=== PATIENT | female | born 1950 | race Caucasian/White ===

== ENCOUNTER 2018-01-26 21:15 | Emergency (ER) | payer MEDICARE, OTHER ==
[~2018-01-26] VITALS: Ht 152.4 cm; Wt 38.5 kg
[2018-01-26 21:32] VITALS: BP 134/71
[2018-01-26] MEDS ORDERED: LEVO750T21 PO (22:31)
== END 2018-01-26 23:39 | disposition home or self-care (01) ==
LOC: ER 21:16
DX: J18.9 Pneumonia, unspecified organism (principal); F17.200 Nicotine dependence, unspecified, uncomplicated; Z79.899 Other long term (current) drug therapy
CPT/HCPCS: 71045; 87502; 87503; 99284

== ENCOUNTER 2018-01-29 14:43 | Emergency (ER) | payer MEDICARE, OTHER ==
[~2018-01-29] VITALS: Ht 152.4 cm; Wt 38.0 kg
[~2018-01-29 14:43] MED LIST: LEVO750T21 PO
[2018-01-29 14:47] VITALS: BP 128/73
== END 2018-01-29 15:38 | disposition home or self-care (01) ==
LOC: ER 14:43
DX: J18.9 Pneumonia, unspecified organism (principal); Z79.2 Long term (current) use of antibiotics
CPT/HCPCS: 99281

== ENCOUNTER 2018-05-23 18:55 | Inpatient (IN) | payer MEDICARE, OTHER ==
[~2018-05-23] VITALS: Ht 149.9 cm; Wt 37.7 kg
[2018-05-23] MEDS ORDERED: ibuprofen 200mg tablet PO ONE (19:15)
[2018-05-23 19:43] LABS: BASOPHILS % (AUTO) 0.2 % (0-1); EOSINOPHILS % (AUTO) 0 % (0-6); HEMATOCRIT 35.1 % (35.0-45.0); HEMOGLOBIN 11.6 g/dl (12.0-16.0); LYMPHOCYTES # (AUTO) 0.5 X10'3 (1.1-4.8); LYMPHOCYTES % (AUTO) 3.7 % (21-51); MEAN CORPUSCULAR HEMOGLOBIN 27.2 PG (27.0-31.0); MEAN CORPUSCULAR VOLUME 82.6 FL (78-98); MONOCYTES # (AUTO) 0.8 X10'3 (0-0.9); MONOCYTES % (AUTO) 5.6 % (2-12); NEUTROPHILS # (AUTO) 12.6 X10'3 (1.8-7.7); NEUTROPHILS % (AUTO) 90.5 % (42-75); PLATELET COUNT 375 X10'3 (140-440); RED BLOOD COUNT 4.25 X10'6 (4.20-5.60); RED CELL DISTRIBUTION WIDTH 15.3 % (11.5-14.5); WHITE BLOOD COUNT 13.9 X10'3 (4.5-11.0)
[2018-05-23 19:55] LABS: ALANINE AMINOTRANSFERASE 13 U/L (12-78); ALBUMIN 2.3 G/DL (3.4-5.0); ALBUMIN/GLOBULIN RATIO 0.5 (1.1-1.5); ALKALINE PHOSPHATASE 141 IU/L (46-116); ANION GAP 11 (8-16); ASPARTATE AMINO TRANSFERASE 13 U/L (10-37); BILIRUBIN,TOTAL 0.9 MG/DL (0.1-1.0); BLOOD UREA NITROGEN 12 MG/DL (7-18); BUN/CREATININE RATIO 13.5 (6.6-38.0); CALCIUM 8.7 MG/DL (8.5-10.1); CHLORIDE 96 MMOL/L (99-107); CREATININE 0.89 MG/DL (0.40-0.90); GLUCOSE 101 MG/DL (70-104); SODIUM 131 MMOL/L (135-145); TOTAL CARBON DIOXIDE 23.8 MMOL/L (24-32); TOTAL PROTEIN 7.3 G/DL (6.4-8.2); eGFR 63 ML/MIN
[2018-05-23 20:01] LABS: PARTIAL THROMBOPLASTIN TIME 33 SECONDS (22-32)
[2018-05-23] MEDS ORDERED: normal saline 1000ML IV soln IV ONE (21:35)
[2018-05-23] MEDS ORDERED: azithromycin 250mg tablet PO ONE (21:35)
[2018-05-23] MEDS ORDERED: CefTRIAXone 2gm/D5W 50ml 50 ML IV ONE (21:35)
[2018-05-23] MEDS ORDERED: normal saline 1000ml 1,000 ML IV SCH (21:59)
[2018-05-23] MEDS ORDERED: ipratropium/albuterol 3ml nebule NEB PRN (22:00)
[2018-05-23] MEDS ORDERED: magnesium hydroxide 30ml (MOM) UD suspension PO PRN (22:00)
[2018-05-23] MEDS ORDERED: magnesium Cl slow-release 64mg tablet PO PRN (22:00)
[2018-05-23] MEDS ORDERED: potassium Cl 20 mEq SR tablet PO PRN ×2 (22:00)
[2018-05-23] MEDS ORDERED: magnesium 4gm in 100ml NS 100 ML IV PRN (22:00)
[2018-05-23] MEDS ORDERED: magnesium 2GM in 50ml NS 50 ML IV PRN (22:00)
[2018-05-23] MEDS ORDERED: potassium Cl 40MEQ/NS 500ml 500 ML IV PRN ×2 (22:00)
[2018-05-23] MEDS ORDERED: acetaminophen 325mg tablet PO PRN ×2 (22:00)
[2018-05-23] MEDS ORDERED: mag hydrox/Alum hydrox/simeth 30ml oral suspension PO PRN (22:00)
[2018-05-23] MEDS ORDERED: nicotine 14mg patch - 24hr TD ONE (22:00)
[2018-05-23] MEDS ORDERED: ondansetron/PF 4mg/2ml inj IV PRN (22:00)
[2018-05-23] MEDS ORDERED: HYDROcodone/acetaminophen 5mg/325mg tablet PO PRN (22:00)
[2018-05-23] MEDS ORDERED: dexamethasone sod phosphate 10mg/ml inj IV STA (22:03)
[2018-05-23] MEDS ORDERED: ipratropium/albuterol 3ml nebule NEB ONE (22:05)
[2018-05-23] MEDS: ipratropium/albuterol 3ml nebule NEB SCH (22:34)
[2018-05-23 23:58] LABS: CLARITY,URINE CLEAR (Clear); COLOR,URINE YELLOW (Yellow); GLUCOSE, URINE NEGATIVE (Neg); KETONES,URINE TRACE mg/dl (Neg); LEUKOCYTE ESTERASE ,URINE NEGATIVE (Neg); NITRITES, URINE NEGATIVE (Neg); OCCULT BLOOD,URINE TRACE-INTACT (Neg); PH,URINE 5.5 (4.8-8.0); PROTEIN,URINE TRACE mg/dl (Neg)
[2018-05-24 00:07] LABS: UA COLLECTION TYPE CLN CATCH MIDSTREAM
[2018-05-24 00:11] LABS: MUCUS STRANDS MANY /LPF (Neg); RBC,URINE 0-2 /HPF (0-2); SQUAMOUS EPITHELIAL CELL,UR MODERATE /LPF (FEW); WBC,URINE 0-4 /HPF (0-4)
[2018-05-24 00:12] LABS: BACTERIA,URINE FEW /HPF (Neg)
[2018-05-24] MEDS ORDERED: methylPREDNISolone sod succ 125mg/2ml vial IV SCH (02:00)
--- NOTE | 2018-05-24 02:29 | NUR ---
REPORTED BP 83/[address] SANCHEZ. NEW ORDER: NS AT 70CC/HR
[2018-05-24] MEDS: normal saline 1000ml 1,000 ML IV SCH ×3 (02:39→15:49)
--- NOTE | 2018-05-24 05:01 | NUR ---
Increased rate of IVF to 1000ml/hr for now as pts bp is low. Her skin is a little clammy. She is afebrile. No pain. She said her normal bp is in the 90s systolic.
--- NOTE | 2018-05-24 05:07 | NUR ---
SBAR to DR SANCHEZ who called me back, instructed to adm. 1 LNS bolus then resume 70 ml/hr.
[2018-05-24] MEDS ORDERED: normal saline 1000ml 1,000 ML IVB ONE (05:10)
--- NOTE | 2018-05-24 05:12 | NUR ---
IV leaking. It was retaped and fresh tagaderm. Seems fine now. IV NS bolusing on pressure bag.
[2018-05-24] MEDS ORDERED: LEVE250T4 PO (06:04)
--- NOTE | 2018-05-24 06:05 | NUR ---
SHE STATES SHE HAS NOT HAD A SZ FOR OVER 10 YEARS.
[2018-05-24] MEDS ORDERED: normal saline 250ml IV soln 250 ML IV ONE (07:35)
[2018-05-24] MEDS: ipratropium/albuterol 3ml nebule NEB SCH ×5 (07:59→23:23)
[2018-05-24] MEDS: nicotine 14mg patch - 24hr TD SCH (08:00)
[2018-05-24] MEDS ORDERED: levetiracetam 250mg tablet PO SCH (08:00)
[2018-05-24] MEDS: K and/or MAG REPLACEMENT MC SCH (08:00)
[2018-05-24] MEDS: CefTRIAXone/D5W-Rocephin 1gm 50 ML IV SCH (09:14)
[2018-05-24] MEDS: enoxaparin 40mg/0.4ml syringe SQ SCH (09:14)
[2018-05-24] MEDS: pantoprazole 40mg Tablet.DR PO SCH (09:14)
[2018-05-24] MEDS: azithromycin/NS 500mg/250ml 250 ML IV SCH (10:52)
[2018-05-24 11:32] LABS: BASOPHILS % (AUTO) 0.3 % (0-1); EOSINOPHILS % (AUTO) 0 % (0-6); HEMATOCRIT 29.9 % (35.0-45.0); HEMOGLOBIN 9.9 g/dl (12.0-16.0); LYMPHOCYTES # (AUTO) 0.3 X10'3 (1.1-4.8); LYMPHOCYTES % (AUTO) 3.3 % (21-51); MEAN CORPUSCULAR HEMOGLOBIN 27.3 PG (27.0-31.0); MEAN CORPUSCULAR HGB CONC 33.1 g/dL (33.0-36.5); MEAN CORPUSCULAR VOLUME 82.5 FL (78-98); MEAN PLATELET VOLUME 7.2 FL (7.4-10.4); MONOCYTES # (AUTO) 0.3 X10'3 (0-0.9); MONOCYTES % (AUTO) 3.2 % (2-12); NEUTROPHILS # (AUTO) 7.7 X10'3 (1.8-7.7); NEUTROPHILS % (AUTO) 93.2 % (42-75); PLATELET COUNT 322 X10'3 (140-440); RED BLOOD COUNT 3.63 X10'6 (4.20-5.60); RED CELL DISTRIBUTION WIDTH 15.2 % (11.5-14.5); WHITE BLOOD COUNT 8.3 X10'3 (4.5-11.0)
[2018-05-24 11:45] LABS: ALBUMIN 1.7 G/DL (3.4-5.0); ANION GAP 9 (8-16); BLOOD UREA NITROGEN 12 MG/DL (7-18); BUN/CREATININE RATIO 16.4 (6.6-38.0); CALCIUM 8.1 MG/DL (8.5-10.1); CHLORIDE 106 MMOL/L (99-107); CREATININE 0.73 MG/DL (0.40-0.90); GLUCOSE 221 MG/DL (70-104); MAGNESIUM 1.8 MG/DL (1.5-2.4); PHOSPHORUS 2.7 MG/DL (2.3-4.5); POTASSIUM 3.4 MMOL/L (3.5-5.1); SODIUM 139 MMOL/L (135-145); TOTAL CARBON DIOXIDE 24.3 MMOL/L (24-32); eGFR 79 ML/MIN
--- NOTE | 2018-05-24 15:19 | NUR ---
Patient in room . I have received report from Starr TIPTON in ER and had the opportunity to ask questions will assume patient care when patient comes to the floor.
[2018-05-24] MEDS: methylPREDNISolone sod succ 125mg/2ml vial IV SCH ×2 (15:57→23:55)
[2018-05-24 16:00] VITALS: BP_SYST 85; BP_SYST 91; BP_DIAS 45; BP_DIAS 46
[2018-05-24 16:03] VITALS: BP 85/45
[2018-05-24 16:05] VITALS: BP 91/46
--- NOTE | 2018-05-24 18:19 | NUR ---
Problems reprioritized. Patient report given, questions answered & plan of care reviewed with Pat RN.
[2018-05-24 19:30] VITALS: BP 95/57
[2018-05-24] MEDS: potassium Cl 20mEq in NS 1,000 ML IV SCH (23:54)
[2018-05-24] MEDS: lactobacillus rhamnosus 10,000 MMU CELLS/CAPSULE PO SCH (23:56)
[2018-05-25] VITALS: BP 94/51
[2018-05-25 05:49] LABS: BASOPHILS % (AUTO) 0.1 % (0-1); EOSINOPHILS % (AUTO) 0 % (0-6); HEMOGLOBIN 8.6 g/dl (12.0-16.0); LYMPHOCYTES # (AUTO) 0.4 X10'3 (1.1-4.8); LYMPHOCYTES % (AUTO) 4.9 % (21-51); MEAN CORPUSCULAR HEMOGLOBIN 27.5 PG (27.0-31.0); MEAN CORPUSCULAR HGB CONC 33.2 g/dL (33.0-36.5); MEAN PLATELET VOLUME 7.2 FL (7.4-10.4); MONOCYTES # (AUTO) 0.3 X10'3 (0-0.9); MONOCYTES % (AUTO) 3.4 % (2-12); NEUTROPHILS # (AUTO) 7.6 X10'3 (1.8-7.7); NEUTROPHILS % (AUTO) 91.6 % (42-75); PLATELET COUNT 303 X10'3 (140-440); RED BLOOD COUNT 3.13 X10'6 (4.20-5.60); RED CELL DISTRIBUTION WIDTH 15.3 % (11.5-14.5); WHITE BLOOD COUNT 8.3 X10'3 (4.5-11.0)
[2018-05-25 06:12] LABS: ALBUMIN 1.6 G/DL (3.4-5.0); ANION GAP 9 (8-16); BLOOD UREA NITROGEN 10 MG/DL (7-18); BUN/CREATININE RATIO 15.4 (6.6-38.0); CALCIUM 8.3 MG/DL (8.5-10.1); CHLORIDE 110 MMOL/L (99-107); CREATININE 0.65 MG/DL (0.40-0.90); GLUCOSE 155 MG/DL (70-104); MAGNESIUM 1.8 MG/DL (1.5-2.4); POTASSIUM 3.9 MMOL/L (3.5-5.1); SODIUM 142 MMOL/L (135-145); TOTAL CARBON DIOXIDE 22.7 MMOL/L (24-32); eGFR > 90 ML/MIN
[2018-05-25 07:12] VITALS: BP 115/76
[2018-05-25] MEDS: K and/or MAG REPLACEMENT MC SCH (08:00)
[2018-05-25] MEDS: methylPREDNISolone sod succ 125mg/2ml vial IV SCH ×2 (08:30→20:33)
[2018-05-25] MEDS: enoxaparin 40mg/0.4ml syringe SQ SCH (08:31)
[2018-05-25] MEDS: lactobacillus rhamnosus 10,000 MMU CELLS/CAPSULE PO SCH ×2 (08:31→20:31)
[2018-05-25] MEDS: pantoprazole 40mg Tablet.DR PO SCH (08:32)
[2018-05-25] MEDS: CefTRIAXone/D5W-Rocephin 1gm 50 ML IV SCH (08:33)
[2018-05-25] MEDS: ipratropium/albuterol 3ml nebule NEB SCH ×5 (08:41→23:00)
[2018-05-25] MEDS: nicotine 14mg patch - 24hr TD SCH (08:41)
[2018-05-25] MEDS: potassium Cl 20mEq in NS 1,000 ML IV SCH ×2 (09:29→15:30)
[2018-05-25] MEDS: azithromycin/NS 500mg/250ml 250 ML IV SCH (09:30)
[2018-05-25 11:00] VITALS: BP 111/69
--- NOTE | 2018-05-25 11:51 | NUR ---
Noted that pt with low BMI of 16.8 however current documented wt is patient stated. Per documented weights from previous visits pt with chronically low wt. Per H&P pt appears well nourished and well developed. Pt with no documented edema or decrease in muscle strength. Pt on a regular diet with documented PO intake 100% protein and 25% of starch/soup first meal. Pt currently does not meet criteria for malnutrition. Will continue to follow. Addendum: 05/25/18 at [address] Amended: Links added.
[2018-05-25] MEDS: levoFLOXACIN-Levaquin 750MG/D5 150 ML IV SCH (15:07)
[2018-05-25] MEDS: benzonatate 100mg capsule PO SCH ×2 (16:09→23:58)
--- NOTE | 2018-05-25 18:00 | NUR ---
Problems reprioritized. Patient report given, questions answered & plan of care reviewed with Jennifer TIPTON .
--- NOTE | 2018-05-25 18:25 | NUR ---
Received report from Maryanne TIPTON with Prudence RN ptis awake and alert on3L of O2 via NC in no apparent distress, dinner at bedside, call light and items of freq use within reach.
--- NOTE | 2018-05-25 18:30 | NUR ---
Patient in room [facility]. I have received report from Darshana TIPTON and had the opportunity to ask questions and assume patient care.
--- NOTE | 2018-05-25 18:46 | NUR ---
1500 SVN treatment triaged
[2018-05-25 19:00] VITALS: BP 122/71
[2018-05-25] MEDS ORDERED: levetiracetam 250mg tablet PO SCH (21:00)
--- NOTE | 2018-05-25 23:57 | NUR ---
Received report from Josie TIPTON in ER pt ambulated a small distance to bed, daughters at bedside, pt on RA, A@Ox4, will orient pt to room and assess. pt states that she took her hearing aides out and is ready to go to sleep, i told we would have to DART and ask questions in the morning when she put her hearing aides in. pt stated this ok. Addendum: 05/25/18 at 0467 by May Abebe RN wrong pt
[2018-05-26 00:23] VITALS: BP 103/62
[2018-05-26 05:57] LABS: BASOPHILS % (AUTO) 0 % (0-1); EOSINOPHILS % (AUTO) 0 % (0-6); HEMATOCRIT 30.2 % (35.0-45.0); LYMPHOCYTES # (AUTO) 0.4 X10'3 (1.1-4.8); LYMPHOCYTES % (AUTO) 4.5 % (21-51); MEAN CORPUSCULAR HEMOGLOBIN 27.5 PG (27.0-31.0); MEAN CORPUSCULAR HGB CONC 33.2 g/dL (33.0-36.5); MEAN CORPUSCULAR VOLUME 82.8 FL (78-98); MEAN PLATELET VOLUME 6.9 FL (7.4-10.4); MONOCYTES # (AUTO) 0.4 X10'3 (0-0.9); NEUTROPHILS # (AUTO) 8.2 X10'3 (1.8-7.7); NEUTROPHILS % (AUTO) 90.5 % (42-75); PLATELET COUNT 382 X10'3 (140-440); RED BLOOD COUNT 3.65 X10'6 (4.20-5.60); RED CELL DISTRIBUTION WIDTH 15.4 % (11.5-14.5); WHITE BLOOD COUNT 9.1 X10'3 (4.5-11.0)
--- NOTE | 2018-05-26 06:18 | NUR ---
Gave report to Maryanne TIPTON with Prudence RN, pt is semi awake on 2L of O2 via NC in no apparent distress, call light and items of freq use within reach.
--- NOTE | 2018-05-26 06:18 | NUR ---
Problems reprioritized. Patient report given to DANUTA Madden, questions answered & plan of care reviewed with DANUTA Olvera .
[2018-05-26 07:00] VITALS: BP 119/68
[2018-05-26] MEDS: ipratropium/albuterol 3ml nebule NEB SCH ×3 (07:18→15:09)
[2018-05-26] MEDS: K and/or MAG REPLACEMENT MC SCH (08:00)
[2018-05-26] MEDS: levoFLOXACIN-Levaquin 750MG/D5 150 ML IV SCH (08:09)
[2018-05-26] MEDS: benzonatate 100mg capsule PO SCH ×2 (08:09→16:24)
[2018-05-26] MEDS: pantoprazole 40mg Tablet.DR PO SCH (08:09)
[2018-05-26] MEDS: lactobacillus rhamnosus 10,000 MMU CELLS/CAPSULE PO SCH (08:09)
[2018-05-26] MEDS: methylPREDNISolone sod succ 125mg/2ml vial IV SCH (08:10)
[2018-05-26] MEDS: nicotine 14mg patch - 24hr TD SCH (08:11)
[2018-05-26] MEDS: enoxaparin 40mg/0.4ml syringe SQ SCH (08:13)
[2018-05-26] MEDS: potassium Cl 20mEq in NS 1,000 ML IV SCH ×2 (08:20)
[2018-05-26 12:16] VITALS: BP 116/67
--- NOTE | 2018-05-26 12:32 | NUR ---
O2 Sat at rest on room air:87% If below 89%: Recovery O2 Sat at rest on 2 LPM: 93%: via nasal cannula (mask/nasal cannula, etc..) No further documentation is necessary. If O2 Sat did not drop below 89% on room air,ambulate patient on room air. O2 Sat while ambulating on room air:___% Recovery O2 Sat while ambulating on ___LPM:___% No further documentation is necessary. If patient does not drop below 89% while ambulating, he/she does not qualify for home O2.
--- NOTE | 2018-05-26 15:22 | NUR ---
FOUND PATIENT ON R/A SPO2 89-90% AT REST. PUT BACK ON 2 LPM SPO2 94-95% PATIENT HAS BEEN ORDERED O2 FOR HOME USE TALKED BRIEFLY ABOUT WHEN SHE EXERTS HERSELF BE PREPARED SPO2 COULD DROP WHEN ON R/A ENCOURAGED TO USE HER O2 PER ORDER. Addendum: 05/26/18 at 1525 by Victoriano Orourke RT Amended: Links added.
[2018-05-26] MEDS ORDERED: PRED10TA23 PO (15:24)
[2018-05-26] MEDS ORDERED: PANT40TA4 PO (15:24)
[2018-05-26] MEDS ORDERED: LEVO750T21 PO (15:24)
[2018-05-26] MEDS ORDERED: ALBU6.7H INH (15:24)
--- NOTE | 2018-05-26 16:40 | NUR ---
Patients discharge instructions reviewed with patient and patient verbalized understanding. Patients Oxygen was delivered by [facility] to patients bedside. Patient was given oxygen extention tubing with adaptors. Patients medications were delivered bedside by [facility] pharmacy. Patient was taken to vehicle via wheelchair by Jyoti SOTO. Patient was also educated not to smoke or have oxygen near open flame. Patient states she has all her belongings.
[2018-05-27] MEDS ORDERED: levoFLOXACIN 750MG TABLET PO SCH (11:00)
== END 2018-05-26 16:40 | disposition home or self-care (01) | DRG 871 ==
LOC: ER 18:56 → SUR 3N 05-24 15:35 → CMPBEDREQ 05-24 22:39
PROVIDERS: ADMIT Family Medicine; ATTEND Internal Medicine
DX: A41.9 Sepsis, unspecified organism (principal); J18.1 Lobar pneumonia, unspecified organism; J96.01 Acute respiratory failure with hypoxia; J44.0 Chronic obstructive pulmonary disease with (acute) lower respiratory infection; E87.1 Hypo-osmolality and hyponatremia; E44.0 Moderate protein-calorie malnutrition; J44.1 Chronic obstructive pulmonary disease with (acute) exacerbation; K50.90 Crohn's disease, unspecified, without complications; Z68.1 Body mass index [BMI] 19.9 or less, adult; F17.200 Nicotine dependence, unspecified, uncomplicated; G40.909 Epilepsy, unspecified, not intractable, without status epilepticus; E87.6 Hypokalemia; I25.10 Atherosclerotic heart disease of native coronary artery without angina pectoris; I95.9 Hypotension, unspecified; Z71.6 Tobacco abuse counseling
CPT/HCPCS: 36415; 71045; 80048; 80053; 81001; 81003; 83605; 83735; 84100; 84145; 84443; 84484; 85025; 85610; 85730; 87040; 87070; 87502; 87503; 93005; 94640; 94667; 94760; 96365; 96366; 96375; 99285; G0378; J0456; J0696; J1100; J1650; J1956; J2930; J3480; J7030

== ENCOUNTER 2019-02-05 11:09 | Emergency (ER) | payer MEDICARE ==
[~2019-02-05] VITALS: Ht 165.1 cm; Wt 50.0 kg
[~2019-02-05 11:09] MED LIST changes: +ALBU6.7H9 INH; +LEVE250T4 PO; -LEVO750T21 PO; +PANT40TA4 PO
[2019-02-05] MEDS ORDERED: rabies vaccine (PCEC)/PF 2.5 unit kit IMVAC ONE (11:50)
[2019-02-05] MEDS ORDERED: rabies immune globulin/PF 150 unit/ml inj IMVAC ONE (11:50)
[2019-02-05 13:01] VITALS: BP 136/75
== END 2019-02-05 13:01 | disposition home or self-care (01) ==
LOC: ER 11:09
DX: S81.831A Puncture wound without foreign body, right lower leg, initial encounter (principal); S80.11XA Contusion of right lower leg, initial encounter; Z79.899 Other long term (current) drug therapy; W55.01XA Bitten by cat, initial encounter; Y93.89 Activity, other specified; Y92.89 Other specified places as the place of occurrence of the external cause; Y99.8 Other external cause status
CPT/HCPCS: 90375; 90471; 90675; 96372; 99283

== ENCOUNTER 2019-02-08 10:13 | Emergency (ER) | payer MEDICARE ==
[~2019-02-08] VITALS: Ht 149.9 cm; Wt 38.6 kg
[2019-02-08 10:18] VITALS: BP 116/67
[2019-02-08] MEDS ORDERED: rabies immune globulin/PF 150 unit/ml inj IMVAC STA (11:22)
[2019-02-08] MEDS ORDERED: rabies vaccine (PCEC)/PF 2.5 unit kit IMVAC ONE (11:25)
== END 2019-02-08 12:19 | disposition home or self-care (01) ==
LOC: ER 10:14
DX: Z23 Encounter for immunization (principal); Z79.899 Other long term (current) drug therapy
CPT/HCPCS: 90471; 90675; 99283

== ENCOUNTER 2019-02-11 10:35 | Emergency (ER) | payer MEDICARE ==
[~2019-02-11] VITALS: Ht 149.9 cm; Wt 40.0 kg
[2019-02-11 10:50] VITALS: BP 113/57
[2019-02-11] MEDS ORDERED: rabies vaccine (PCEC)/PF 2.5 unit kit IMVAC ONE (11:35)
[2019-02-11] MEDS ORDERED: LOPE2TAB25 PO (12:08)
[2019-02-11] MEDS ORDERED: L. R1CAP4 PO (12:08)
== END 2019-02-11 12:35 | disposition home or self-care (01) ==
LOC: ER 10:35
DX: R11.2 Nausea with vomiting, unspecified (principal); R19.7 Diarrhea, unspecified; Z23 Encounter for immunization; Z79.4 Long term (current) use of insulin; Z79.899 Other long term (current) drug therapy
CPT/HCPCS: 90471; 90675; 99283

== ENCOUNTER 2019-02-18 09:25 | Emergency (ER) | payer MEDICARE ==
[~2019-02-18] VITALS: Ht 149.9 cm; Wt 39.0 kg
[~2019-02-18 09:25] MED LIST changes: +L. R1CAP4 PO; +LOPE2TAB25 PO
[2019-02-18 09:26] VITALS: BP 158/80
[2019-02-18] MEDS ORDERED: rabies vaccine (PCEC)/PF 2.5 unit kit IMVAC ONE (09:40)
== END 2019-02-18 10:09 | disposition home or self-care (01) ==
LOC: ER 09:26
DX: Z23 Encounter for immunization (principal); Z79.899 Other long term (current) drug therapy
CPT/HCPCS: 90471; 90675; 99283